=== PATIENT | female | born 1990 | race Caucasian/White ===

== ENCOUNTER 2017-08-18 06:16 | Inpatient (IN) | payer OTHER ==
[~2017-08-18] VITALS: Ht 154.9 cm; Wt 55.3 kg
[~2017-08-18 06:16] MED LIST: NOHOMEMEDICATIONS; NORCO 5-325 TA1 EACH PO; VICODIN 5-5001 EACH PO
[2017-08-18 06:27] VITALS: BP 100/68
[2017-08-18 06:40] LABS: ABSOLUTE EOSINOPHILS 0.1 thou/uL (0.0-0.7); ABSOLUTE LYMPHOCYTES 1.2 thou/uL (0.8-5.3); ABSOLUTE MONOCYTES 0.5 thou/uL (0.0-1.2); ABSOLUTE NEUTROPHILS 5.8 thou/uL (1.6-8.1); BASOPHILS 0.5 %; EOSINOPHILS 0.7 %; HEMATOCRIT 39.5 % (37.0-47.0); HEMOGLOBIN 13.6 gm/dL (12.0-15.0); LYMPHOCYTES 15.9 %; MCH 31.8 pg (26.0-34.0); MCHC 34.5 g/dL (28.0-37.0); MCV 92.2 fL (80.0-100.0); MONOCYTES 6.7 %; MPV 8.1 fl. (7.2-11.1); NUCLEATED RBCS 0 /100WBC; PLATELET COUNT* 275 thou/uL (150-400); POLYS 76.2 %; RBC 4.29 mil/uL (4.20-5.00); RDW-CV 12.4 % (10.5-14.5); WBC 7.6 thou/uL (4.0-11.0)
[2017-08-18 06:45] LABS: ANION GAP 12 mmol/L (7-16); BUN 9 mg/dL (7-18); CALCIUM 8.8 mg/dL (8.5-10.1); CHLORIDE 103 mmol/L (98-107); CO2 22 mmol/L (21-32); CREATININE 0.8 mg/dL (0.6-1.3); GLUCOSE 108 mg/dL (70-99); POTASSIUM 3.8 mmol/L (3.5-5.1); SODIUM 137 mmol/L (136-145)
[2017-08-18 06:51] LABS: ALKALINE PHOSPHATASE 41 U/L (46-116); SGOT 14 U/L (15-37); SGPT 17 U/L (30-65); TOTAL BILIRUBIN 0.7 mg/dL (<0.1-1.0); TOTAL PROTEIN 7.3 g/dL (6.4-8.2); TROPONIN-I LEVEL <0.06 ng/mL (<0.06)
[2017-08-18 08:23] LABS: URINE BILIRUBIN NEGATIVE (Negative); URINE BLOOD 3+ (Negative); URINE CLARITY SL CLOUDY; URINE COLOR DARK YELLOW; URINE GLUCOSE-RANDOM NEGATIVE (Negative); URINE KETONES 1+ (Negative); URINE LEUKOCYTES-REFLEX TRACE (Negative); URINE NITRITE-REFLEX NEGATIVE (Negative); URINE PROTEIN 2+ (Negative); URINE UROBILINOGEN 0.2 E.U./dl (0.2-1.0)
[2017-08-18 08:30] LABS: AMP/METHAMP Negative (Negative); BARBITURATES Negative (Negative); BENZODIAZEPINES Negative (Negative); COCAINE Negative (Negative); METHADONE Negative (Negative); OPIATES Negative (Negative); PCP Negative (Negative); THC POSITIVE (Negative)
[2017-08-18 08:35] LABS: AMORPHOUS URATES Few /LPF (None Seen); BACTERIA-REFLEX 1-9 Few /HPF (None Seen); CASTS None Seen /LPF (None Seen); MUCUS 0-3 Light strn/LPF (None Seen); SQUAMOUS 0-3 Few /LPF (0-3); URINE WBC-REFLEX 0-5 Rare /HPF (0-5)
[2017-08-18 10:03] VITALS: BP 91/56
[2017-08-18 10:32] VITALS: BP 103/52
--- NOTE | 2017-08-18 11:05 | EKG ---
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
[2017-08-18 16:09] VITALS: BP 114/59
[2017-08-18 19:45] VITALS: BP 127/61
[2017-08-18] MEDS ORDERED: [UNRECOGNIZED DRUG - OTHER] (20:21)
[2017-08-19] VITALS: BP 97/60
[2017-08-19 04:00] VITALS: BP 93/60
[2017-08-19 07:50] VITALS: BP 95/65
[2017-08-19 12:00] VITALS: BP 108/70; BP 108/71
[2017-08-19] MEDS ORDERED: KEPPRA 500 MG500 M1 PO (13:44)
[2017-08-19 14:53] VITALS: BP 108/70
--- NOTE | 2017-08-22 21:54 | EEG ---
[address] [address] EEG STUDY REPORT Name: MANOJ AVILES Marilu Room: [address] IN M.R.#: [id number] Admission: 08/18/17 Attend Phys: Joshua Pedraza, Discharge: 08/19/17 Date of : 88 Report #: [id number] THIS REPORT FOR: //name// CC: Connie Liz Pedraza DATE OF SERVICE: 08/18/2017 This patient is being evaluated for the possibility of seizure. EEG was done by placing the electrode by standard 10/20 system of electrode placement. Both referential and sequential montages were used for recording. Background activity in this patient's EEG is about 11 Hz and 40 microvolt. This is a very well formed background activity. The patient went to sleep multiple times and that is associated with bilaterally symmetrical sleep spindle, vertex sharp waves, K complexes. Photic stimulation is unremarkable. During one portion of this EEG, it would appear that the patient showed bursts of sharp and slow complexes. IMPRESSION: This patient's EEG appeared to be showing one burst of sharper and slow activity that can be consistent with a seizure disorder if clinically correlated. However, the finding is difficult to totally separate from the artifact and therefore, clinical correlation is recommended. I discussed that aspect with the patient. Because of completely unprovoked seizures and this EEG finding, my recommendation was to go on anticonvulsant, but if she does that, it should be indefinitely or at least for long time. She should also take folic acid and avoid any . I discussed all this aspect with the patient in great detail and she said she wants to think about it and will make her decision by tomorrow. That is why, I did not prescribe any medication and we have discussed and I think we will probably prescribe Keppra if she decides to go on medications. <ELECTRONICALLY SIGNED> By: Mahesh Nina MD 08/22/17 2154 12 26Mahesh Nina MD /nt
--- NOTE | 2017-08-22 21:54 | CON ---
[address] [address] CONSULTATION Name: MANOJ AVILES Room: [address] IN M.R.#: [id number] Admission: 08/18/17 Attend Phys: Joshua Pedraza, Discharge: 08/19/17 Date of : 88 Report #: [id number] THIS REPORT FOR: //name// CC: Connie Liz Pedraza DATE OF SERVICE: 08/18/2017 HISTORY OF PRESENT ILLNESS: This is a 27-year-old female patient who was evaluated by me for new onset seizure. The patient does not remember anything about that. She gives a history that she was with the boyfriend. She made a loud noise and then she started shaking. It lasted 2-3 minutes. There was a well-defined postictal period. She had tongue biting and urinary incontinence during this episode. This is the history she provided to me and she is pretty definite about this history. That history is somewhat different than the documented in the Emergency Room notes, so I asked her a few times and she said she does have a slight tongue bite and she had urinary incontinence. She does not drink much alcohol except once a while. She does have some headache, but overall she is getting better. REVIEW OF SYSTEMS: I carried out 14-point review of system and this patient does not have any prior history of stroke. She is healthy and she does not take any diabetic medication. At one time, she took tramadol, that was long time ago and that was for very short duration and she does not even know why she took that. She denies using any recent medication. PAST MEDICAL HISTORY: Negative for seizure. FAMILY HISTORY: Negative for any early age strokes. SOCIAL HISTORY: She smokes marijuana, but she does not use any cocaine or amphetamine. PHYSICAL EXAMINATION: Indicate she is alert, responsive, able to follow simple and complex command. Cranial nerve examination 2-12 looks unremarkable. She has a symmetrical strength, sensation, reflexes and tones in all 4 extremities. There is no cerebellar sign. I could not have a very good look at the patient's fundus. Her cardiac examinations appear unremarkable. She does not appear to have any respiratory difficulty. She is a moderately built individual who does not have any dysmorphic features of eyes, ears and face. Blood pressure is 103/52, respirations 16, pulse is 66, temperature is 97.8. IMPRESSION: Clinically, this patient appeared to have seizure. This is a new onset seizure and there is really no etiology for the patient's symptoms. I discussed the situation with her and I told her we will await the workup, but since there is no obvious factor for her seizure, [place] [address] CONSULTATION Name: MANOJ AVILES Room: [address] [place] M.R.#: [id number] Admission: 08/18/17 Attend Phys: Joshua Pedraza, Discharge: 08/19/17 Date of : 88 Report #: [id number] Keppra or Lamictal as an anticonvulsant. However, they all have teratogenic side effects. She needs to take that into consideration. She wants to think about that. After first seizure, we usually have an option whether to put the patient on medication or wait to see if it happens again or not. This seizure looks completely unprovoked. Because of that, the possibility of seizure medication needs to be considered and she will think about it. RECOMMENDATIONS: 1. EEG. 2. MRI of the brain with and without contrast. 3. She needs to take seizure precautions. I told that the laws in [place] and [place] will not let or allow to drive for 6 months. She also should not work near moving machinery, on heights, near fire or any place where she can hurt herself if she has a seizure. She understood those well. We will talk more about putting on medication tomorrow after she think about it. Thank you very much for this referral and the nurses were told to take seizure precaution. <ELECTRONICALLY SIGNED> By: Mahesh Nina MD 08/22/17 2154 1324 Josette Nina MD /nt
== END 2017-08-19 15:15 | disposition home or self-care (01) | DRG 101 ==
LOC: M.ERS 06:16 → M.TBA-ER 08:50 → M.2W 08:50
PROVIDERS: Emergency Medicine Emergency Medical Services; ADMIT Family Medicine
DX: G40.909 Epilepsy, unspecified, not intractable, without status epilepticus (principal); F17.210 Nicotine dependence, cigarettes, uncomplicated; Z88.8 Allergy status to other drugs, medicaments and biological substances; Z88.6 Allergy status to analgesic agent; Z87.828 Personal history of other (healed) physical injury and trauma